=== PATIENT | female | born 1990 | race Caucasian/White ===

== ENCOUNTER 2018-09-18 20:59 | Emergency (ER) | payer OTHER ==
[~2018-09-18] VITALS: Ht 160 cm; Wt 51.0 kg
[~2018-09-18 20:59] MED LIST: AMPH20TA2 PO; IBUP-1223 PO
--- NOTE | 2018-09-18 21:09 | NUR ---
TO ROOM 33. GOWN GIVEN. ORIENTED TO ROOM
--- NOTE | 2018-09-18 21:49 | NUR ---
IV STARTED, LABS DRAWN, PER MD AWAIT LAB RESULTS AND THEN IMAGING IF NEEDED. VSS, MONITORS APPLIED, CALL LIGHT IN PLACE.
[2018-09-18] MEDS ORDERED: SODIUM CHLORIDE FLUSH 10ML SYR IVF ONE (22:00)
[2018-09-18 22:41] LABS: BASOPHILS # (AUTO) 0.04 x10^3/uL (0-0.1); BASOPHILS % (AUTO) 0 % (0-1); EOSINOPHILS # (AUTO) 0.15 x10^3/uL (0-0.4); EOSINOPHILS % (AUTO) 2 % (1-7); LYMPHOCYTES # (AUTO) 2.38 x10^3/uL (1-3.4); LYMPHOCYTES % (AUTO) 23 % (22-44); MD NO; MEAN CORPUSCULAR HEMOGLOBIN 32.1 pg (27.0-34.8); MEAN CORPUSCULAR HGB CONC 33.3 g/dL (32.4-35.8); MEAN CORPUSCULAR VOLUME 96.5 fL (80-100); MEAN PLATELET VOLUME 8.9 fL (7.4-10.4); MONOCYTES # (AUTO) 0.47 x10^3/uL (0.2-0.8); MONOCYTES % (AUTO) 5 % (2-9); NEUTROPHILS % (AUTO) 70 % (42-75); PLATELET COUNT 205 x10^3/uL (130-400); RED BLOOD COUNT 3.84 x10^6/uL (3.82-5.3); RED CELL DISTRIBUTION WIDTH 13.4 % (9.6-15.2)
--- NOTE | 2018-09-18 22:48 | NUR ---
awaiting md consult. no needs currently
[2018-09-18 23:19] VITALS: BP 110/65
--- NOTE | 2018-09-18 23:19 | NUR ---
work note and rx/paperwork given. pt amb to dc. md to bs to discuss f/u poc.
== END 2018-09-18 23:21 | disposition home or self-care (01) ==
LOC: ED 22:04
DX: N83.291 Other ovarian cyst, right side (principal); F17.200 Nicotine dependence, unspecified, uncomplicated
CPT/HCPCS: 36415; 85025; 99283